=== PATIENT | male | born 1945 | race Asian ===

== ENCOUNTER 2020-11-01 18:01 | Inpatient (IN) | payer OTHER ==
[2020-11-01] MEDS ORDERED: LORazepam 2 MG/ML SDV VIAL IVPUSH ONE (19:57)
[2020-11-01] MEDS ORDERED: LORazepam 2 MG/ML SDV VIAL ONE (20:06)
[2020-11-01] MEDS ORDERED: diazePAM 2 MG TABLET PO ONE ×2 (20:09→20:37)
[2020-11-01] MEDS ORDERED: SODIUM CHLORIDE 0.9% 500 ML INFUS.BAG IV ONE (20:39)
[2020-11-01] MEDS ORDERED: diazePAM 2 MG TABLET ONE (20:39)
[2020-11-01 20:46] LABS: BASO % 0.4 % (0-2.0); EOS % 5.4 % (0-4.5); HEMATOCRIT 34.1 % (35.4-49); HEMOGLOBIN 11.5 GM/dL (11.7-16.9); LYMPH % 30.4 % (8-40); MCH 27.3 pg (25.7-33.7); MCHC 33.6 g/dl (32.0-35.9); MEAN PLT VOLUME 7.9 fl (7.5-11.1); MONO % 8.2 % (3.8-10.2); NEUT % 55.6 % (42.8-82.8); PLATELET COUNT 220 10^3/uL (134-434); RBC 4.21 M/mm3 (4.00-5.60); RDW 13.4 % (11.9-15.9); WHITE BLOOD COUNT 10.4 K/mm3 (4.0-10.0)
[2020-11-01 21:03] LABS: CHLORIDE 101 mmol/L (98-107); SODIUM 136 mmol/L (136-145)
[2020-11-01 21:06] LABS: ALBUMIN 3.9 g/dl (3.4-5.0); ANION GAP 8 MMOL/L (8-16); BLOOD UREA NITROGEN 44.8 mg/dL (7-18); CALCIUM 9.2 mg/dL (8.5-10.1); CO2 27 mmol/L (21-32); MAGNESIUM 2.3 mg/dL (1.8-2.4)
[2020-11-01 21:07] LABS: GLUCOSE,RANDOM 137 mg/dL (74-106)
[2020-11-01 21:10] LABS: BILIRUBIN,TOTAL 0.5 mg/dL (0.2-1); CREATININE 2.1 mg/dL (0.55-1.3); PHOSPHOROUS 5.3 mg/dL (2.5-4.9); SGOT/AST 17 U/L (15-37); SGPT/ALT 31 U/L (13-61)
[2020-11-01 21:11] LABS: TOT PROT 7.8 g/dl (6.4-8.2)
[2020-11-01 21:12] LABS: ALK PHOS 81 U/L (45-117)
[2020-11-02] MEDS ORDERED: SODIUM CHLORIDE 1,000 ML IV SCH ×2 (01:00→09:30)
[2020-11-02] MEDS ORDERED: CYCLOBENZAPRINE HCL 10 MG TABLET (FP) PO PRN (03:39)
[2020-11-02 04:30] VITALS: BMI 28.2
[2020-11-02 04:36] LABS: BASO % 0.4 % (0-2.0); EOS % 5.8 % (0-4.5); HEMATOCRIT 32.2 % (35.4-49); HEMOGLOBIN 10.9 GM/dL (11.7-16.9); LYMPH % 27.5 % (8-40); MCH 27.6 pg (25.7-33.7); MEAN CELL VOLUME 81.3 fl (80-96); MEAN PLT VOLUME 8.1 fl (7.5-11.1); NEUT % 57.3 % (42.8-82.8); PLATELET COUNT 191 10^3/uL (134-434); RBC 3.96 M/mm3 (4.00-5.60); RDW 13.2 % (11.9-15.9)
[2020-11-02] MEDS: HEPARIN NA (PORCINE) 5,000 UNITS/ML 1ML VIAL SQ SCH ×3 (06:31→21:17)
[2020-11-02] MEDS: INSULIN SLIDING SCALE (NOVOLOG) 1 VIAL SQ SCH ×3 (06:54→17:23)
[2020-11-02 08:11] LABS: BASO % 0.3 % (0-2.0); EOS % 5.6 % (0-4.5); HEMATOCRIT 33.9 % (35.4-49); HEMOGLOBIN 11.4 GM/dL (11.7-16.9); LYMPH % 28.5 % (8-40); MCH 27.6 pg (25.7-33.7); MCHC 33.8 g/dl (32.0-35.9); MEAN CELL VOLUME 81.8 fl (80-96); MEAN PLT VOLUME 8.4 fl (7.5-11.1); NEUT % 57.6 % (42.8-82.8); PLATELET COUNT 210 10^3/uL (134-434); RBC 4.14 M/mm3 (4.00-5.60); RDW 13.4 % (11.9-15.9); WHITE BLOOD COUNT 7.6 K/mm3 (4.0-10.0)
[2020-11-02 08:44] LABS: PH,URINE 6.5 (5.0-8.0); URINE APPEARANCE CLEAR; URINE BILIRUBIN NEGATIVE (NEGATIVE); URINE COLOR YELLOW; URINE GLUCOSE (UA) 1+ (NEGATIVE); URINE KETONE NEGATIVE (NEGATIVE); URINE LEUK ESTERASE NEGATIVE (NEGATIVE); URINE NITRITE NEGATIVE (NEGATIVE); URINE PROTEIN NEGATIVE (NEGATIVE); URINE UROBILINOGEN 0.2 mg/dL (0.2-1.0)
[2020-11-02 08:54] LABS: CALCIUM 8.7 mg/dL (8.5-10.1)
[2020-11-02 08:56] LABS: ALBUMIN 3.5 g/dl (3.4-5.0); BLOOD UREA NITROGEN 38.8 mg/dL (7-18)
[2020-11-02 08:57] LABS: MAGNESIUM 2.2 mg/dL (1.8-2.4)
[2020-11-02 08:59] LABS: PHOSPHOROUS 3.9 mg/dL (2.5-4.9)
[2020-11-02 09:00] LABS: BILIRUBIN,TOTAL 0.6 mg/dL (0.2-1); CREATININE 1.8 mg/dL (0.55-1.3)
[2020-11-02 09:02] LABS: TOT PROT 7.1 g/dl (6.4-8.2)
[2020-11-02] MEDS ORDERED: PNEUMOC 13-VAL CONJ-DIP CRM/PF 0.5 ML DISP.SYRIN IM ONE (10:00)
[2020-11-02] MEDS: FAMOTIDINE 20 MG TABLET PO SCH (15:51)
[2020-11-02] MEDS: FUROSEMIDE 40 MG TABLET (FP) PO SCH (15:51)
[2020-11-02] MEDS ORDERED: PT OWN MED DRAWER 7, Y5N ONE (17:08)
[2020-11-02] MEDS: prednisoLONE ACETATE 1% OPHTH SUSP 5 ML BOTTLE OD SCH ×2 (17:24→21:16)
[2020-11-02] MEDS: GABAPENTIN 100 MG CAPSULE PO SCH (21:16)
[2020-11-02] MEDS: ATORVASTATIN CA 40 MG TABLET (FP) PO SCH (21:16)
[2020-11-02] MEDS: LATANOPROST 0.005% OPHTH SOLN 2.5ML BOTTLE OD SCH (21:17)
[2020-11-02] MEDS ORDERED: LISINOPRIL 10 MG TABLET PO SCH (22:00)
[2020-11-03] MEDS: LEVOTHYROXINE NA 25 MCG TABLET (FP) PO SCH (06:29)
[2020-11-03] MEDS: HEPARIN NA (PORCINE) 5,000 UNITS/ML 1ML VIAL SQ SCH ×3 (06:29→21:23)
[2020-11-03] MEDS: INSULIN SLIDING SCALE (NOVOLOG) 1 VIAL SQ SCH ×3 (06:29→17:08)
[2020-11-03 07:21] LABS: BASO % 0.3 % (0-2.0); EOS % 5.1 % (0-4.5); HEMATOCRIT 35.8 % (35.4-49); HEMOGLOBIN 12.1 GM/dL (11.7-16.9); LYMPH % 21.1 % (8-40); MCH 27.7 pg (25.7-33.7); MCHC 33.9 g/dl (32.0-35.9); MEAN CELL VOLUME 81.6 fl (80-96); MEAN PLT VOLUME 8.4 fl (7.5-11.1); MONO % 6.7 % (3.8-10.2); NEUT % 66.8 % (42.8-82.8); PLATELET COUNT 210 10^3/uL (134-434); RBC 4.38 M/mm3 (4.00-5.60); RDW 13.4 % (11.9-15.9); WHITE BLOOD COUNT 9.8 K/mm3 (4.0-10.0)
[2020-11-03 07:37] LABS: ALBUMIN 3.9 g/dl (3.4-5.0); CALCIUM 8.9 mg/dL (8.5-10.1)
[2020-11-03 07:38] LABS: BLOOD UREA NITROGEN 38.4 mg/dL (7-18)
[2020-11-03 07:41] LABS: CREATININE 1.9 mg/dL (0.55-1.3); PHOSPHOROUS 4.1 mg/dL (2.5-4.9)
[2020-11-03 07:42] LABS: BILIRUBIN,TOTAL 0.4 mg/dL (0.2-1); TOT PROT 7.6 g/dl (6.4-8.2)
[2020-11-03] MEDS: FUROSEMIDE 40 MG TABLET (FP) PO SCH (09:12)
[2020-11-03] MEDS: GABAPENTIN 100 MG CAPSULE PO SCH ×2 (09:13→21:23)
[2020-11-03] MEDS: INSULIN (LEVEMIR) 100 UNITS/ML UNITS SQ SCH (09:13)
[2020-11-03] MEDS: FAMOTIDINE 20 MG TABLET PO SCH (09:13)
[2020-11-03] MEDS ORDERED: INSULIN (LEVEMIR) 100 UNITS/ML UNITS SQ SCH (10:00)
[2020-11-03] MEDS: prednisoLONE ACETATE 1% OPHTH SUSP 5 ML BOTTLE OD SCH ×4 (10:13→21:24)
[2020-11-03] MEDS ORDERED: CYCLOBENZAPRINE HCL 5 MG TABLET PO SCH (14:00)
[2020-11-03] MEDS ORDERED: PT OWN MED DRAWER 7, Y5N ONE (14:19)
[2020-11-03] MEDS: CYCLOBENZAPRINE HCL 10 MG TABLET (FP) PO SCH ×2 (14:57→21:23)
[2020-11-03] MEDS: ATORVASTATIN CA 40 MG TABLET (FP) PO SCH (21:23)
[2020-11-03] MEDS: LATANOPROST 0.005% OPHTH SOLN 2.5ML BOTTLE OD SCH (21:24)
[2020-11-04] MEDS: HEPARIN NA (PORCINE) 5,000 UNITS/ML 1ML VIAL SQ SCH ×2 (06:50→13:57)
[2020-11-04] MEDS: CYCLOBENZAPRINE HCL 10 MG TABLET (FP) PO SCH ×2 (06:50→13:57)
[2020-11-04] MEDS: LEVOTHYROXINE NA 25 MCG TABLET (FP) PO SCH (06:50)
[2020-11-04] MEDS: INSULIN SLIDING SCALE (NOVOLOG) 1 VIAL SQ SCH ×3 (06:51→17:10)
[2020-11-04 07:50] LABS: CALCIUM 9.6 mg/dL (8.5-10.1)
[2020-11-04 07:52] LABS: BLOOD UREA NITROGEN 38.6 mg/dL (7-18)
[2020-11-04 07:55] LABS: CREATININE 2.1 mg/dL (0.55-1.3)
[2020-11-04] MEDS ORDERED: PT OWN MED DRAWER 7, Y5N ONE (09:33)
[2020-11-04] MEDS: FAMOTIDINE 20 MG TABLET PO SCH (09:35)
[2020-11-04] MEDS: GABAPENTIN 100 MG CAPSULE PO SCH (09:35)
[2020-11-04] MEDS: INSULIN (LEVEMIR) 100 UNITS/ML UNITS SQ SCH (09:35)
[2020-11-04] MEDS: prednisoLONE ACETATE 1% OPHTH SUSP 5 ML BOTTLE OD SCH ×3 (09:38→17:18)
[2020-11-04 18:05] VITALS: BP 115/78; PULSE 79; TEMP 97.3
== END 2020-11-04 18:25 | disposition home or self-care (01) | DRG 684 ==
LOC: JER 18:01 → JERBED 21:33 → J4S 11-02 02:39
PROVIDERS: ADMIT Internal Medicine; ATTEND Internal Medicine
DX: N17.9 Acute kidney failure, unspecified (principal); I12.9 Hypertensive chronic kidney disease with stage 1 through stage 4 chronic kidney disease, or unspecified chronic kidney disease; E11.22 Type 2 diabetes mellitus with diabetic chronic kidney disease; N18.30 Chronic kidney disease, stage 3 unspecified; E78.5 Hyperlipidemia, unspecified; K21.9 Gastro-esophageal reflux disease without esophagitis; E78.00 Pure hypercholesterolemia, unspecified; D72.829 Elevated white blood cell count, unspecified; N40.0 Benign prostatic hyperplasia without lower urinary tract symptoms; D63.1 Anemia in chronic kidney disease
CPT/HCPCS: 36415; 70450-TC; 70490-TC; 70551-TC; 71046-TC-FY; 71250-TC; 76775-TC; 80048; 80053; 81003; 82330; 82550; 82553; 82728; 82962; 83540; 83550; 83735; 84100; 84436; 84443; 84466; 84484; 85025; 85045; 87086; 90670; 93005; 93010; 93880-TC; 95816; 97116-GP; 97161-GP; 99285-25; C9803; J1644; U0003; U0005